=== PATIENT | male | born 1980 | race Caucasian/White ===

== ENCOUNTER 2016-07-19 03:15 | Emergency (ER) | payer OTHER ==
[2016-07-19 03:44] VITALS: BP 135/74
--- NOTE | 2016-07-19 03:47 | ED INFLUENZA/URI COMPLAINT ---
History of Present Illness General Chief Complaint: General Adult Stated Complaint: " RT EAR PAIN RADIATES TO RT EYE YESTERDAY NOON" Source: patient Exam Limitations: no limitations Vital Signs & Intake/Output Vital Signs & Intake/Output Vital Signs Date Time Temp Pulse Resp B/P B/P Pulse O2 O2 Flow FiO2 Mean Ox Delivery Rate 07/19 0344 98.2 75 18 135/74 99 Allergies Coded Allergies: No Known Allergies (07/19/16) Reconcile Medications Amoxicillin/Potassium Clav (Augmentin 875-125 Tablet) 875 MG-125 MG TABLET 1 TAB PO BID LEFT EAR INFECTION Ibuprofen 800 MG TABLET 1 TAB PO TID PRN PAIN Triage Note: PT TO ED C/O RIGHT EAR PAIN THAT RADIATES TO RIGHT SIDE OF HEAD AND EAR. PT REPORTS TAKING T[employer]. PT DENIES FEVER AND CHILLS Triage Nurses Notes Reviewed? yes Onset: Gradual Duration: hour(s): Timing: recent history Severity: moderate Prior Episodes/Possible Cause: "I had ear infections as a kid." Modifying Factors: Improves With: rest. Associated Symptoms: right ear pain that goes up into my sinuses HPI: 36 yo gentleman, h/o otitis media, presents with sudden onset right ear pain, associated with sinus pressure and congestion. He notes mild sore throat and post-nasal drip. He has no fever, chills, chest pain, dyspnea. He is otherwise well. Past History Travel History Traveled to [place] past 21 day No Medical History Any Pertinent Medical History? see below for history Surgical History Surgical History: none Family History Hx Contributory? No Review of Systems Review of Systems Constitutional: Reports: no symptoms. EENTM: Reports: no symptoms. Respiratory: Reports: no symptoms. Cardiovascular: Reports: no symptoms. GI: Reports: no symptoms. Genitourinary: Reports: no symptoms. Musculoskeletal: Reports: no symptoms. Skin: Reports: no symptoms. Neurological/Psychological: Reports: no symptoms. Hematologic/Endocrine: Reports: no symptoms. Immunologic/Allergic: Reports: no symptoms. All Other Systems: Reviewed and Negative Physical Exam Physical Exam General Appearance: well developed/nourished, mild distress Head: atraumatic, normal appearance Eyes: Bilateral: normal appearance. Ears, Nose, Throat: right TM with erythema, swelling, fluid behind TM left TM is normal Neck: normal inspection, supple, full range of motion Respiratory: normal breath sounds, chest non-tender, no respiratory distress Cardiovascular: regular rate/rhythm, edema Gastrointestinal: normal bowel sounds, soft, non-tender, no organomegaly Back: normal inspection, normal range of motion, vertebral tenderness Extremities: normal inspection, normal capillary refill, normal range of motion Neurologic/Psych: no motor/sensory deficits, awake, alert, oriented x 3 Reflexes: 1+: bicep (R), bicep (L), knee (R), knee (L). Skin: intact, normal color, warm/dry Core Measures Severe Sepsis Present: No Septic Shock Present: No Progress Differential Diagnosis: otitis, pharyngitis, sinusitis Plan of Care: gave rx for augmentin and supportive medications. Initial ED EKG: none Departure Departure Disposition: HOME OR SELF CARE Condition: Stable Clinical Impression Primary Impression: Otitis media Referrals: UNKNOWN (PCP/Family) Departure Forms: Customer Survey General Discharge Information Prescriptions: Current Visit Scripts Amoxicillin/Potassium Clav (Augmentin 875-125 Tablet) 1 TAB PO BID #20 TAB Ibuprofen 1 TAB PO TID PRN PAIN #30 TAB
[2016-07-19] MEDS ORDERED: AUGMENTIN 875-1 EACH PO (04:13)
[2016-07-19] MEDS ORDERED: IBUPROFEN800 M1 PO (04:13)
== END 2016-07-19 04:25 ==
LOC: ERH 03:15
DX: H66.91 Otitis media, unspecified, right ear (principal)
CPT/HCPCS: J3490

== ENCOUNTER 2017-08-26 16:09 | Emergency (ER) | payer OTHER ==
[~2017-08-26] VITALS: Ht 175.3 cm; Wt 108.9 kg
[~2017-08-26 16:09] MED LIST: AUGMENTIN 875-1 EACH PO; IBUPROFEN800 M1 PO
[2017-08-26 16:51] LABS: ABSOLUTE BASOPHIL COUNT 0 /CUMM (0.0-0.2); ABSOLUTE EOSINOPHIL COUNT 0.1 /CUMM (0.0-0.7); ABSOLUTE GRANULOCYTE CT 12.6 /CUMM (1.4-6.5); ABSOLUTE LYMPH COUNT 1.1 /CUMM (1.2-3.4); ABSOLUTE MONOCYTE COUNT 0.4 /CUMM (0.10-0.60); BASOPHIL % 0.1 % (0.0-2.0); EOSINOPHIL % 0.8 % (0-5); HEMATOCRIT 50.5 % (42-52); MEAN CORPUSCULAR HGB 27.9 PG (27.0-31.0); MEAN CORPUSCULAR HGB CONC 34.5 G/DL (33.0-37.0); MEAN PLATELET VOLUME 7.8 FL (7.4-10.4); PLATELET COUNT 262 /CUMM (130-400); RBC DISTRIBUTION WIDTH 13.1 % (11.5-14.5); RED BLOOD CELL CT 6.24 /CUMM (4.70-6.10); WHITE BLOOD CELL COUNT 14.3 /CUMM (4.8-10.8)
[2017-08-26 17:02] LABS: GRANULOCYTE % 88.4 % (42.2-75.2)
--- NOTE | 2017-08-26 17:17 | ED GENERAL ADULT ---
History of Present Illness General Chief Complaint: General Adult Stated Complaint: PT DIZZY,NAUSEA,CHILLS, Source: patient Exam Limitations: no limitations Vital Signs & Intake/Output Vital Signs & Intake/Output Vital Signs Date Time Temp Pulse Resp B/P B/P Pulse O2 O2 Flow FiO2 Mean Ox Delivery Rate 08/26 2014 99.4 103 18 92/53 97 Room Air 08/26 1809 97.9 110 18 132/78 98 Room Air 08/26 1700 98 Room Air 08/26 1613 98.9 132 15 126/92 97 Room Air Room Air Allergies Coded Allergies: No Known Allergies (08/26/17) Reconcile Medications Amoxicillin/Potassium Clav (Augmentin 875-125 Tablet) 875 MG-125 MG TABLET 1 TAB PO BID LEFT EAR INFECTION Ibuprofen 800 MG TABLET 1 TAB PO TID PRN PAIN Triage Note: PT TO ED FOR C/C OF RAPID ONSET OF HEADACHE, FEVER, CHILLS, LOTS OF GAS AND INABILITY TO HAVE BM SINCE THIS MORNING. PT HAS LOW GRADE TEMP 99.6. FELT FINE LAST NIGHT. TACHYCARDIC 136 INITIALLY; EKG SHOWS ST 124. Triage Nurses Notes Reviewed? yes HPI: Patient woke up this morning feeling very nauseous. There's been no vomiting. Patient states he has not eaten or drank anything today because of the nausea. Patient denies any diarrhea. Patient states he moves his bowels normally every day however his last bowel movement was 2 days ago and he did not go yesterday and only when a very small amount today. He denies any abdominal pain. He went to work and while at work he began to get a throbbing headache on the right side of his head. The headache radiates down to his right ear. The pain is constant. He rates that pain at a 4 out of 10. There is no blurry vision. Patient decided to come into the emergency department for evaluation. Past History Travel History Traveled to [place] past 21 day No Medical History Any Pertinent Medical History? see below for history Neurological: NONE EENT: NONE Cardiovascular: NONE Respiratory: NONE Gastrointestinal: GERD Hepatic: NONE Renal: NONE Musculoskeletal: NONE Psychiatric: NONE Endocrine: NONE Blood Disorders: NONE Cancer(s): NONE AUTO TECH/Reproductive: NONE Surgical History Surgical History: none Psychosocial History What is your primary language Belarusian Tobacco Use: Current Daily Use Daily Tobacco Use Amount/Type: => 5 Cigarettes daily ETOH Use: denies use Illicit Drug Use: denies illicit drug use Family History Hx Contributory? No Review of Systems Review of Systems Constitutional: Reports: see HPI, chills, fever (SUBJECTIVE). EENTM: Reports: see HPI, ear pain. Respiratory: Reports: no symptoms. Cardiovascular: Reports: no symptoms. GI: Reports: see HPI, nausea. Genitourinary: Reports: no symptoms. Musculoskeletal: Reports: no symptoms. Skin: Reports: no symptoms. Neurological/Psychological: Reports: see HPI, headache. Hematologic/Endocrine: Reports: no symptoms. Immunologic/Allergic: Reports: no symptoms. All Other Systems: Reviewed and Negative Physical Exam Physical Exam General Appearance: well developed/nourished, alert, awake, anxious, moderate distress Head: atraumatic, normal appearance Eyes: Bilateral: PERRL, EOMI. Ears, Nose, Throat: normal pharynx, DRY MM RIGHT TM: ERYTHMEMA, SWELLING Neck: normal inspection, supple, full range of motion, NO MENENGEAL SIGNS Respiratory: CRACKLES LEFT BASE Cardiovascular: normal peripheral pulses, tachycardia Gastrointestinal: normal bowel sounds, soft, non-tender, no organomegaly Back: normal inspection, normal range of motion Extremities: normal inspection, normal capillary refill, normal range of motion, no edema Neurologic/Psych: no motor/sensory deficits, awake, alert, oriented x 3, normal gait, normal mood/affect Skin: intact, normal color, warm/dry Lymphatic: no anterior cervical rodney Core Measures ACS in differential dx? No CVA/TIA Diagnosis: No Sepsis Present: No Sepsis Focused Exam Completed? No Progress Differential Diagnoses I considered the following diagnoses in my evaluation of the patient: [Pneumonia , UTI, viral illness, otitis media] Plan of Care: Orders Procedure Date/time Status URINALYSIS 08/26 1716 Complete TROPONIN LEVEL 08/26 1624 Complete COMPREHENSIVE METABOLIC PANEL 08/26 1624 Complete CBC WITHOUT DIFFERENTIAL 08/26 1624 Complete EKG 08/26 1614 Active Current Medications Sig/Best Start time Last Medication Dose Stop Time Status Admin Acetaminophen 1,000 MG ONCE ONE 08/26 2114 AC (Ofirmev) 08/26 2128 N/A 1 UNIT (No Carrier) Laboratory Tests 08/26/17 1808: Urine Color YEL, Urine Clarity CLEAR, Urine pH 6.0, Ur Specific [place] 1.010, Urine Protein NEG, Urine Ketones NEG, Urine Nitrite NEG, Urine Bilirubin NEG, Urine Urobilinogen 0.2, Ur Leukocyte Esterase NEG, Ur Microscopic EXAM NOT REQUIRED, Urine Hemoglobin NEG, Urine Glucose NEG 08/26/17 1636: Anion Gap 14, Estimated GFR > 60, BUN/Creatinine Ratio 16.3, Glucose 97, Calcium 9.2, Total Bilirubin 0.8, AST 38, ALT 84 H, Alkaline Phosphatase 126, Troponin I < 0.01, Total Protein 7.7, Albumin 4.4, Globulin 3.3, Albumin/Globulin Ratio 1.3, CBC w Diff NO MAN DIFF REQ, RBC 6.24 H, MCV 81.0, MCH 27.9, MCHC 34.5, RDW 13.1, MPV 7.8, Gran % 88.4 H, Lymphocytes % 7.8 L, Monocytes % 2.9, Eosinophils % 0.8, Basophils % 0.1, Absolute Granulocytes 12.6 H, Absolute Lymphocytes 1.1 L, Absolute Monocytes 0.4, Absolute Eosinophils 0.1, Absolute Basophils 0 Diagnostic Imaging: Viewed by Me: Radiology Read, CT Scan. Discussed w/RAD: Radiology Read, CT Scan. Radiology Impression: PATIENT: KELLY GEORGE PRESENT AGE : 37 PATIENT ACCOUNT NO: [id number] : 79 LOCATION: [facility] ORDERING PHYSICIAN: Saw Murray MD SERVICE DATE: 08/26/17 EXAM TYPE: CAT - CT ABD & PELVIS W IV CONTRAST EXAMINATION: CT ABDOMEN AND PELVIS WITH CONTRAST CLINICAL INFORMATION: Right upper quadrant abdominal pain. COMPARISON: Chest radiograph 08/26/2017. TECHNIQUE: Multidetector volumetric imaging was performed of the abdomen and pelvis following IV administration of 95 mL of Optiray 320 intravenous contrast. Sagittal and coronal reformatted images were obtained on the technologist's workstation. DLP: 674.25 mGy-cm FINDINGS: LUNG BASES: Lung bases are clear. There is no pleural or pericardial effusion. LIVER, GALLBLADDER , AND BILIARY TREE: Liver attenuation is homogeneous and there is no evidence of a discrete hepatic parenchymal mass. No evidence of intrahepatic or extrahepatic biliary ductal dilatation. The gallbladder is unremarkable with no evidence of radiopaque gallstones, gallbladder wall thickening, or obvious pericholecystic inflammatory changes. PANCREAS: Unremarkable. SPLEEN: Unremarkable. ADRENAL GLANDS: Unremarkable. KIDNEYS AND URETERS: There is a horseshoe kidney with a relatively narrow isthmus best illustrated on axial image 51 of 105 series 2. A few small well marginated benign-appearing cystic lesions are visualized within both renal moieties. There is no hydronephrosis. No abnormal perinephric inflammation or collection. No abnormal mass or calcifications visualized along the expected course of the right or left ureter. BLADDER: Unremarkable. GASTROINTESTINAL TRACT: The stomach and small bowel is normal. The colon and appendix are normal. There is no free intraperitoneal air or fluid. ABDOMINAL WALL: No significant hernia is appreciated. LYMPH NODES: No pathologically enlarged mesenteric or retroperitoneal lymph nodes. VASCULAR: The abdominal aorta and inferior vena cava are unremarkable. PELVIC VISCERA: Unremarkable. OSSEOUS STRUCTURES: There is no acute osseous finding. No worrisome lytic or blastic osseous lesion. IMPRESSION: There is no abnormal finding to provide a definitive explanation for this patient's right upper quadrant abdominal pain. Incidentally there is a horseshoe kidney with a few well marginated benign- appearing cystic lesions within both renal moieties. The gallbladder and appendix are unremarkable. DICTATED BY: Ricky Emerson MD DATE/TIME DICTATED :08/26/172100 EPIC APPLICATION COORDINATOR:GWEN DATE/TIME TRANSCRIBED:08/26/172100 CONFIDENTIAL, DO NOT COPY WITHOUT APPROPRIATE AUTHORIZATION. < Electronically signed in Other Vendor System> SIGNED BY: Ricky Emerson MD 08/26/172109 CXR Impression: PATIENT: KELLY GEORGE PRESENT AGE: 37 PATIENT ACCOUNT NO: [id number] : 79 LOCATION: [facility] ORDERING PHYSICIAN: Saw Murray MD SERVICE DATE: 08/26/17 EXAM TYPE: RAD - XRY-CHEST XRAY, TWO VIEWS EXAMINATION: XR CHEST CLINICAL INFORMATION: 37-year-old man with cough and fever. COMPARISON: None TECHNIQUE: 2 views of the chest were obtained. FINDINGS: The lungs are generally well expanded, without evidence of focal airspace consolidation or pneumothorax. Heart size is within the range of normal. There are no pleural effusions. Prominence of the interstitial markings is suspected to be technical in nature. IMPRESSION: No convincing radiographic evidence of an acute cardiopulmonary process. DICTATED BY: Mayra Garzon MD DATE/ TIME DICTATED:08/26/171742 EPIC APPLICATION COORDINATOR:GWEN DATE/TIME TRANSCRIBED: 08/26/171742 CONFIDENTIAL, DO NOT COPY WITHOUT APPROPRIATE AUTHORIZATION. < Electronically signed in Other Vendor System> SIGNED BY: Ryann ARMANDO,Mayra 09/07 Initial ED EKG: s tach, no stt changes Departure Departure Disposition: OTHER [facility] (ACUTE) Condition: Stable Clinical Impression Primary Impression: Right otitis media Secondary Impressions: Viral syndrome Referrals: Robel ARMANDO,Michel Denney (PCP) Additional Instructions: Take amoxicillin as prescribed for your ear infection. Take Zofran as needed for nausea. Return if symptoms worsen or for any concerns. Departure Forms: Customer Survey General Discharge Information Prescriptions: Current Visit Scripts Amoxicillin 1 CAP PO TID #30 CAP Ondansetron (Zofran Odt) 1 TAB SL TID PRN NAUSEA #10 TAB Critical Care Note Critical Care Note Critical Care Time: non-applicable
--- NOTE | 2017-08-26 17:47 | RADIOLOGY REPORT ---
EXAMINATION: XR CHEST CLINICAL INFORMATION: 37-year-old man with cough and fever. COMPARISON: None TECHNIQUE: 2 views of the chest were obtained. FINDINGS: The lungs are generally well expanded, without evidence of focal airspace consolidation or pneumothorax. Heart size is within the range of normal. There are no pleural effusions. Prominence of the interstitial markings is suspected to be technical in nature. IMPRESSION: No convincing radiographic evidence of an acute cardiopulmonary process.
--- NOTE | 2017-08-26 21:10 | CT SCAN REPORT ---
EXAMINATION: CT ABDOMEN AND PELVIS WITH CONTRAST CLINICAL INFORMATION: Right upper quadrant abdominal pain. COMPARISON: Chest radiograph 08/26/2017. TECHNIQUE: Multidetector volumetric imaging was performed of the abdomen and pelvis following IV administration of 95 mL of Optiray 320 intravenous contrast. Sagittal and coronal reformatted images were obtained on the technologist's workstation. DLP: 674.25 mGy-cm FINDINGS: LUNG BASES: Lung bases are clear. There is no pleural or pericardial effusion. LIVER, GALLBLADDER, AND BILIARY TREE: Liver attenuation is homogeneous and there is no evidence of a discrete hepatic parenchymal mass. No evidence of intrahepatic or extrahepatic biliary ductal dilatation. The gallbladder is unremarkable with no evidence of radiopaque gallstones, gallbladder wall thickening, or obvious pericholecystic inflammatory changes. PANCREAS: Unremarkable. SPLEEN: Unremarkable. ADRENAL GLANDS: Unremarkable. KIDNEYS AND URETERS: There is a horseshoe kidney with a relatively narrow isthmus best illustrated on axial image 51 of 105 series 2. A few small well marginated benign-appearing cystic lesions are visualized within both renal moieties. There is no hydronephrosis. No abnormal perinephric inflammation or collection. No abnormal mass or calcifications visualized along the expected course of the right or left ureter. BLADDER: Unremarkable. GASTROINTESTINAL TRACT: The stomach and small bowel is normal. The colon and appendix are normal. There is no free intraperitoneal air or fluid. ABDOMINAL WALL: No significant hernia is appreciated. LYMPH NODES: No pathologically enlarged mesenteric or retroperitoneal lymph nodes. VASCULAR: The abdominal aorta and inferior vena cava are unremarkable. PELVIC VISCERA: Unremarkable. OSSEOUS STRUCTURES: There is no acute osseous finding. No worrisome lytic or blastic osseous lesion. IMPRESSION: There is no abnormal finding to provide a definitive explanation for this patient's right upper quadrant abdominal pain. Incidentally there is a horseshoe kidney with a few well marginated benign-appearing cystic lesions within both renal moieties. The gallbladder and appendix are unremarkable.
[2017-08-26] MEDS ORDERED: AMOXICILLIN250 M3 PO ×2 (21:24→21:49)
[2017-08-26] MEDS ORDERED: ZOFRAN ODT4 M1 SL ×2 (21:24→21:49)
[2017-08-26 21:50] VITALS: BP 100/72
== END 2017-08-26 21:51 ==
LOC: ERH 16:09
PROVIDERS: Physician Assistant
DX: H66.91 Otitis media, unspecified, right ear (principal); B34.9 Viral infection, unspecified
CPT/HCPCS: 71046; 74177; 81003; 93005; 93010; 96361; 96374; 96375; J0131; J1885; J2405